=== PATIENT | female | born 1975 | race Caucasian/White ===

== ENCOUNTER 2022-03-26 06:50 | Emergency (ER) | payer SELFPAY ==
[~2022-03-26] VITALS: Ht 153.9 cm; Wt 90.0 kg
[2022-03-26] VITALS (7 sets, daily range): BP systolic 114–149; BP diastolic 76–90
[~2022-03-26 06:50] MED LIST: AMOXICILLIN500 MG OR; DOXYCYCL HYC100 M4 PO; ERYTHROMYCIN O3.5 GM OU; KEFLEX500 MG OR; LAMISIL250 MG OR; LORTAB 10 PO; OMEPRAZOLE20 MG PO
[2022-03-26 07:30] LABS: BASO% 0.2 % (0-3); EOS% 0.5 % (0-8); HEMATOCRIT 37.6 % (37.0-47.0); HEMOGLOBIN 11.8 g/dl (12.0-16.0); IMMATURE GRANULOCYTES 0.9 % (0.0-5.0); LYMPH% 21.1 % (15-41); MEAN CORPUSCULAR HGB CONC 31.4 g/dL CAL (32.0-36.0); MONO% 6.5 % (2-13); NEUT# 9.03 thou/uL (2.00-7.15); NEUT% 70.8 % (42-76); RED BLOOD COUNT 4.53 mill/uL (4.20-5.60); RED CELL DISTRI WIDTH 15.1 % (11.5-15.5)
[2022-03-26 07:46] LABS: ALKALINE PHOSPHATASE 63 u/l (38-126); ANION GAP 8 (6-22 (CALC)); BUN 8 mg/dL (7-17); BUN/CREATININE RATIO 12 (12-20 (CALC)); CARBON DIOXIDE 24 mmol/l (22-30); CHLORIDE 109 mmol/l (95-108); CREATININE 0.7 mg/dL (0.5-1.0); GFR FOR AFR.AMER. > 60 ML/MIN (>=60 (CALC)); GFR OTHER RACES > 60 ML/MIN (>=60 (CALC)); POTASSIUM 3.7 mmol/l (3.5-5.1); SGOT/AST 25 u/l (14-36); SODIUM 138 mmol/l (137-146); TOTAL PROTEIN 7.1 g/dL (6.3-8.2)
== END 2022-03-26 09:29 | disposition home or self-care (01) | DRG 885 ==
LOC: ED 06:50
PROVIDERS: Family Medicine
DX: F22 Delusional disorders (principal)

== ENCOUNTER 2022-04-03 15:40 | Emergency (ER) | payer OTHER ==
[~2022-04-03] VITALS: Ht 152.4 cm; Wt 79.4 kg
[2022-04-03] MEDS ORDERED: BUSPAR5 M1 PO (18:09)
[2022-04-03 18:14] VITALS: BP 109/67
== END 2022-04-03 18:20 | disposition home or self-care (01) ==
LOC: ED 15:40
DX: F41.9 Anxiety disorder, unspecified (principal); F17.210 Nicotine dependence, cigarettes, uncomplicated; Z59.9 Problem related to housing and economic circumstances, unspecified